=== PATIENT | female | born 1975 | race Caucasian/White ===

== ENCOUNTER → 2016-04-29 | Outpatient (CLI) | payer BC ==
[~2016-04-29] MED LIST: ALLDSR60 PO; BCPILLS PO; LRT5 PO; PRAM0.129 PO; SIMV20TA2 PO
[2016-04-29 12:33] LABS: ALT/SGPT 20 U/L (12-78); AST/SGOT 14 U/L (15-37); BLOOD UREA NITROGEN 11 mg/dl (7-18); CALCIUM 8.7 mg/dl (8.5-10.1); CARBON DIOXIDE 25 mmol/L (21-32); CHLORIDE 107 mmol/L (98-107); CREATININE 0.73 mg/dl (0.60-1.20); GLUCOSE 81 mg/dl (70-99); POTASSIUM 4.1 mmol/L (3.5-5.1); SODIUM 141 mmol/L (136-145)
[2016-04-29 12:44] LABS: ALB/GLOB RATIO 1.1 (0.9-2); ALKALINE PHOSPHATASE 80 U/L (45-117); CHOLESTEROL 186 mg/dl (0-200); CHOLESTEROL/HDL RATIO 3.5; HDL CHOLESTEROL 53 mg/dl; LDL CHOLESTEROL CALCULATED 105 mg/dl; TRIGLYCERIDES 140 mg/dl (0-150); VERY LOW DENSITY LIPOPROT CALC 28 mg/dl
== END | disposition home or self-care (01) ==
LOC: C.LABPVFM 07:29
PROVIDERS: ATTEND Family Medicine
DX: E78.4 Other hyperlipidemia (principal); G25.81 Restless legs syndrome; E03.9 Hypothyroidism, unspecified

== ENCOUNTER → 2016-06-22 | Outpatient (CLI) | payer BC ==
[2016-06-22 13:13] LABS: HEMATOCRIT 37.2 % (37-47)
== END | disposition home or self-care (01) ==
LOC: C.LAB1850 11:58
PROVIDERS: ATTEND Obstetrics & Gynecology
DX: N92.0 Excessive and frequent menstruation with regular cycle (principal)

== ENCOUNTER → 2016-09-02 | Outpatient (CLI) | payer BC ==
--- NOTE | 2016-09-03 14:24 | MAMMOGRAPHY REPORT ---
BILATERAL DIGITAL SCREENING MAMMOGRAM TOMOSYNTHESIS WITH CAD: 09/02/2016 CLINICAL HISTORY: Routine screening. Patient has no complaints. TECHNIQUE: Breast tomosynthesis in addition to standard 2D mammography was performed. Current study was also evaluated with a Computer Aided Detection (CAD) system. COMPARISON: Comparison is made to exam dated: 08/29/2015 mammogram - [facility] [place]. BREAST COMPOSITION: The tissue of both breasts is heterogeneously dense, which may obscure small mas ses. FINDINGS: The parenchymal pattern is unchanged. No developing mass, architectural distortion or clus ter of suspicious microcalcifications is seen in either breast. IMPRESSION: ACR BI-RADS CATEGORY 2: BENIGN There is no mammographic evidence of malignancy. A 1 year screening mammogram is recommended. The pa tient will receive written notification of the results. Approximately 10% of breast cancers are not detected with mammography. A negative mammographic report should not delay biopsy if a clinically suggestive mass is present. Cande Griggs M.D. ay/:09/02/2016 16:14:42 Refurbish Technician: Kathya ANN(Jany)(Liane)(BD), [facility] [place] letter sent: Normal 1/2 BI-RADS Code: ACR BI-RADS Category 2: Benign
== END | disposition home or self-care (01) ==
LOC: C.MAMM 08:04
PROVIDERS: ATTEND Obstetrics & Gynecology
DX: Z12.31 Encounter for screening mammogram for malignant neoplasm of breast (principal)

== ENCOUNTER → 2016-11-02 | Outpatient (CLI) | payer BC ==
[2016-11-02 13:29] LABS: ALT/SGPT 18 U/L (12-78); AST/SGOT 12 U/L (15-37); BLOOD UREA NITROGEN 10 mg/dl (7-18); BUN/CREATININE RATIO 11.9 (10-20); CALCIUM 8.7 mg/dl (8.5-10.1); CARBON DIOXIDE 25 mmol/L (21-32); CHLORIDE 109 mmol/L (98-107); GLUCOSE 78 mg/dl (70-99); POTASSIUM 4.4 mmol/L (3.5-5.1); SODIUM 139 mmol/L (136-145)
[2016-11-02 13:40] LABS: ALKALINE PHOSPHATASE 67 U/L (45-117); CHOLESTEROL 175 mg/dl (0-200); CHOLESTEROL/HDL RATIO 3.9; HDL CHOLESTEROL 45 mg/dl; LDL CHOLESTEROL CALCULATED 89 mg/dl; TRIGLYCERIDES 203 mg/dl (0-150); VERY LOW DENSITY LIPOPROT CALC 41 mg/dl
== END | disposition home or self-care (01) ==
LOC: C.LABPVFM 07:26
PROVIDERS: ATTEND Family Medicine
DX: E78.4 Other hyperlipidemia (principal); G25.81 Restless legs syndrome; E03.9 Hypothyroidism, unspecified; R03.0 Elevated blood-pressure reading, without diagnosis of hypertension

== ENCOUNTER → 2016-11-25 | Outpatient (CLI) | payer BC ==
[2016-11-25 12:34] LABS: HEMATOCRIT 38.3 % (37-47)
== END | disposition home or self-care (01) ==
LOC: C.LAB1850 11:32
PROVIDERS: ATTEND Obstetrics & Gynecology
DX: N92.0 Excessive and frequent menstruation with regular cycle (principal)

== ENCOUNTER → 2016-12-02 | Outpatient (CLI) | payer BC | END | disposition home or self-care (01) | LOC: C.PAPS 11:06 | PROVIDERS: ATTEND Obstetrics & Gynecology | DX: Z01.419 Encounter for gynecological examination (general) (routine) without abnormal findings (principal) ==

== ENCOUNTER → 2017-05-10 | Outpatient (CLI) | payer BC ==
[2017-05-10 13:21] LABS: ALBUMIN 3.6 gm/dl (3.4-5.0); ALT/SGPT 23 U/L (12-78); AST/SGOT 17 U/L (15-37); BLOOD UREA NITROGEN 9 mg/dl (7-18); CALCIUM 8.7 mg/dl (8.5-10.1); CARBON DIOXIDE 26 mmol/L (21-32); CHOLESTEROL 175 mg/dl (0-200); CREATININE 0.77 mg/dl (0.60-1.20); GLUCOSE 79 mg/dl (70-99); POTASSIUM 4.1 mmol/L (3.5-5.1); SODIUM 137 mmol/L (136-145)
[2017-05-10 13:32] LABS: ALKALINE PHOSPHATASE 75 U/L (45-117); LDL CHOLESTEROL CALCULATED 87 mg/dl; TOTAL PROTEIN 7.5 gm/dl (6.4-8.2)
== END | disposition home or self-care (01) ==
LOC: C.LABPVFM 07:15
PROVIDERS: ATTEND Family Medicine
DX: E78.4 Other hyperlipidemia (principal); G25.81 Restless legs syndrome; E03.9 Hypothyroidism, unspecified; H92.09 Otalgia, unspecified ear

== ENCOUNTER → 2017-05-24 | Outpatient (CLI) | payer BC ==
[~2017-05-24] MED LIST changes: +PRAM0.1212 PO; -PRAM0.129 PO
--- NOTE | 2017-05-24 08:44 | DIAGNOSTIC IMAGING REPORT ---
THYROID ULTRASONOGRAPHY CLINICAL HISTORY: HYPOTHYROIDISM COMPARISON STUDY: No previous studies for comparison. FINDINGS: The right lobe measures 32 x 14 x 13 mm pure the left lobe measures 44 x 15 x 13 mm. Both lobes demonstrate worsened echogenicity with tiny hypoechoic nodular foci. No suspicious thyroid masses are visualized. IMPRESSION: Heterogeneous thyroid gland. No suspicious thyroid nodules are evident Electronically signed by: Tree Mendoza M.D. 05/24/2017 8:43 AM Dictated Date/Time: 05/24/2017 8:41 AM
== END | disposition home or self-care (01) ==
LOC: C.ULTR 07:57
PROVIDERS: ATTEND Family Medicine
DX: R11.0 Nausea (principal); R10.13 Epigastric pain; R10.11 Right upper quadrant pain; E03.9 Hypothyroidism, unspecified

== ENCOUNTER → 2017-11-08 | Outpatient (CLI) | payer BC ==
[2017-11-08 14:02] LABS: ALBUMIN 3.8 gm/dl (3.4-5.0); ALKALINE PHOSPHATASE 56 U/L (45-117); ALT/SGPT 17 U/L (12-78); AST/SGOT 18 U/L (15-37); BLOOD UREA NITROGEN 11 mg/dl (7-18); CALCIUM 8.6 mg/dl (8.5-10.1); CARBON DIOXIDE 22 mmol/L (21-32); CHOLESTEROL 180 mg/dl (0-200); CREATININE 0.77 mg/dl (0.60-1.20); GLUCOSE 82 mg/dl (70-99); LDL CHOLESTEROL CALCULATED 90 mg/dl; POTASSIUM 4.1 mmol/L (3.5-5.1); SODIUM 139 mmol/L (136-145); TOTAL PROTEIN 7.1 gm/dl (6.4-8.2)
== END | disposition home or self-care (01) ==
LOC: C.LABPVFM 07:18
PROVIDERS: ATTEND Family Medicine
DX: E78.4 Other hyperlipidemia (principal); G25.81 Restless legs syndrome; E03.9 Hypothyroidism, unspecified; R03.0 Elevated blood-pressure reading, without diagnosis of hypertension

== ENCOUNTER 2019-09-14 07:03 | Observation (INO) ==
--- NOTE | 2019-09-06 14:43 | PAT Medication Instructions ---
Medication Instructions Date of Service September 06, 2019 Home Medications Medication Instructions Recorded levothyroxine 50 mcg tablet 50 mcg PO QAM #30 tab 04/26/19 lisinopril 5 mg tablet 5 mg PO QPM #30 tab 08/28/19 ropinirole 4 mg tablet 4 mg PO HS #30 tab 08/28/19 multivitamin 1 tab PO QAM fluticasone propionate 50 mcg/actuation nasal spray 1 - 2 sprays INTRANASAL QAM levothyroxine 50 mcg tablet 50 mcg PO QAM atorvastatin 40 mg PO QPM fexofenadine-pseudoephedrine [Sophie-D 24 Hour] 1 tab PO QAM lisinopril 5 mg tablet 5 mg PO QPM ropinirole 4 mg tablet 4 mg PO HS albuterol sulfate 1 inh INHALATION QID PRN deuvodt-nvtgeaweganxz-imrcewoe [Excedrin Migraine] 1 tab PO Q6H PRN ASK your surgeon for instructions mmuxpxy-rfwudylekhgyq-ypmjwvlo [Excedrin Migraine] 1 tab PO Q6H PRN STOP taking 24 hours before surgery ropinirole 4 mg tablet 4 mg PO HS DO NOT take the morning of surgery multivitamin 1 tab PO QAM fexofenadine-pseudoephedrine [Sophie-D 24 Hour] 1 tab PO QAM Take morning of surgery With a small sip of water, OTHERWISE NOTHING TO EAT OR DRINK AFTER MIDNIGHT: fluticasone propionate 50 mcg/actuation nasal spray 1 - 2 sprays INTRANASAL QAM levothyroxine 50 mcg tablet 50 mcg PO QAM albuterol sulfate 1 inh INHALATION QID PRN (if needed, and bring with you to the hospital) Take evening before surgery atorvastatin 40 mg PO QPM lisinopril 5 mg tablet 5 mg PO QPM albuterol sulfate 1 inh INHALATION QID PRN (if needed) Other Notes If you have any questions please call us at [phone] or [phone] or [phone] or [phone]
--- NOTE | 2019-09-06 14:48 | Anesthesiology Consultation ---
Date of Service September 06, 2019 Assessment & Plan (1) Encounter for pre-operative examination: COVID Status: As of 09/05 nurse assessment, patient denies travel to endemic area, known exposure/sick contacts, symptoms, or testing for coronavirus. test AM DOS Chart Review Chart Review: Acceptable Risk for Surgery and Patient seen in Pre Admission Testing Teaching & Discussion Instructed NPO after midnight before surgery, except medications with 15 cc of water. Medication instructions provided according to the PAT guidelines. History Surgery Operation Date: 09/14/19 07:30 Proposed Procedures p Robotic Total Laparoscopic Hysterectomy - Srinath Leon MD, FACOG Height/Weight Height: 5 ft 5 in Weight: 75.7 kg Allergies Allergy/AdvReac Type Severity Reaction Status Date / Time Dust Mite Allergy Unknown Uncoded 08/30/19 08:15 Medications Home Medications Medication Instructions Recorded Confirmed Last Taken multivitamin 1 tab PO QAM 11/08/18 09/06/19 Unknown fluticasone propionate 50 1 - 2 sprays INTRANASAL QAM gm 11/16/18 09/06/19 Unknown mcg/actuation nasal spray,suspension levothyroxine 50 mcg tablet 50 mcg PO QAM #30 tab 04/26/19 09/06/19 Unknown atorvastatin 40 mg PO QPM 07/02/19 09/06/19 Unknown fexofenadine-pseudoephedrine 1 tab PO QAM 07/02/19 09/06/19 Unknown [Sophie-D 24 Hour] lisinopril 5 mg tablet 5 mg PO QPM #30 tab 08/28/19 09/06/19 Unknown ropinirole 4 mg tablet 4 mg PO HS #30 tab 08/28/19 09/06/19 Unknown albuterol sulfate 1 inh INHALATION QID PRN 08/30/19 09/06/19 Unknown dybkhlw-dnljffibvaayf-psqyhbgi 1 tab PO Q6H PRN 08/30/19 09/06/19 Unknown [Excedrin Migraine] Past Medical History Medical History (Updated 09/07/19 @ 12:59 by Navdeep Richter) Asthma EXERCISE INDUCED-HASN'T USED INHALER FOR YRS Factor 5 Leiden mutation, heterozygous DX'D YRS AGO THRU DR CAMARGO-DUE TO FAMILY HX-HAS NOT EXPERIENCED ANY ISSUES Hyperlipidemia Hypertension Kidney stones PASSED ON OWN; NO SURGERY Migraine Restless leg syndrome Skin abnormalities Exercise / Class Metabolic Activity II 4-5 Yardwork/Stairs/Walk up hill Past Family History Family History Mother Colorectal cancer Denies family history of Ovarian cancer Prostate cancer Myocardial infarction Breast cancer Past Surgical History Surgical History History of eye surgery REMOVAL OF PTERYGIUM OF EYE Status post open reduction with internal fixation (ORIF) of fracture of ankle 1998; REMOVAL OF SCREWS AND PLATE 2 TO 3 YEARS LATER. [place] teeth extracted Past Anesthesia History No Hx of Anesthesia Complications and No Family Hx of Anesthesia Complications History of PONV No Hx of PONV and Hx of Motion Sickness Social History Smoking Status: Never smoker Do You Dip or Chew Tobacco: No Hx Alcohol Use: No Hx Substance Use: No substance use type: does not use Review of Systems Pt denies any recent chest pain, shortness of breath, palpitations, cough, fever or URI. Physical Exam Vital Signs BP: 134/87 P: 76bpm SPO2: 95% RA T: 98.7 F R: 16 ENMT Mouth: + dental restorations (crowns on few molars); no chipped teeth and no loose teeth Thyromental Distance: < 3.5 Finger Breadths (3) Mallampati Class: III Neck normal visual inspection; neck extension not limited Respiratory normal respiratory effort Auscultation: lungs clear to auscultation bilaterally Cardiovascular Rate/Rhythm: regular rate and regular rhythm Heart Sounds: no murmur Extremities: no edema Testing Laboratory Results 09/06/19 15:01 09/06/19 15:01 Blood Type A Positive 09/06/19 15:01 Antibody Screen NEGATIVE 09/06/19 15:01
[2019-09-06 15:31] LABS: Basophils # (auto) 0.06 K/uL (0-0.2); Basophils % (auto) 0.9 %; Eosinophils # (auto) 0.15 K/uL (0-0.5); Eosinophils % (auto) 2.4 %; Hemoglobin 12.6 g/dL (12.0-16.0); Lymphocytes # (auto) 2.36 K/uL (1.2-3.4); Lymphocytes % (auto) 37.2 %; Mean Corpuscular Hemoglobin 32.3 pg (25-34); Mean Corpuscular Hgb Conc 34.1 g/dL (32-36); Mean Corpuscular Volume 94.9 fL (80-100); Mean Platelet Volume 10.3 fL (7.4-10.4); Monocytes # (auto) 0.57 K/uL (0.11-0.59); Neutrophils % (auto) 50.5 %; Platelet Count 281 K/uL (130-400); RDW Coefficient of Variation 12.8 % (11.5-14.5); RDW Standard Deviation 43.8 fL (36.4-46.3); White Blood Count 6.34 K/uL (4.8-10.8)
[2019-09-06 15:41] LABS: BUN Creatinine Ratio 19.8 (10-20); Calcium 9.2 mg/dl (8.5-10.1); Creatinine Clr Calc Pharmacy 93.7 ml/min; Est GFR (African American) 107.2; Est GFR (Non-African American) 92.5; Potassium 3.7 mmol/L (3.5-5.1)
[~2019-09-14 07:03] MED LIST changes: -ALLDSR60 PO; -BCPILLS PO; +CEFAZOLIN 2000MG 2,000 MG/15 ML SYR IV SCH; +LACTATED RINGER'S 1,000 ML IV SCH; +LR 15ML/HR IV SCH; -LRT5 PO; -PRAM0.1212 PO; -SIMV20TA2 PO
--- NOTE | 2019-09-14 08:15 | History & Physical Bridge Note ---
Date of Service September 14, 2019 History & Physical Bridge Note I have examined the patient, reviewed the History & Physical and in the interval since the performance of the History & Physical I have noted the following changes of clinical significance: no changes noted
[2019-09-14] MEDS ORDERED: fentaNYL citrate 100 MCG/2 ML VIAL ONE ×2 (08:21→12:45)
[2019-09-14] MEDS ORDERED: MIDAZOLAM HCL 1 MG/ML 2ML VIAL ONE (08:22)
[2019-09-14] MEDS ORDERED: BUPIVACAINE 0.5 % 5 MG/1 ML MPF 30ML VIAL ONE (09:04)
[2019-09-14] MEDS ORDERED: ePHEDrine sulfate 50 MG/ML AMP IV PRN (09:06)
[2019-09-14] MEDS ORDERED: ATROPINE SULFATE 0.1 MG/ML 10ML SYR IV PRN (09:06)
[2019-09-14] MEDS ORDERED: ONDANSETRON INJ 2 MG/ML 2 ML VIAL IV PRN ×2 (09:06→13:12)
[2019-09-14] MEDS ORDERED: PROMETHAZINE HCL 12.5 MG in SODIUM CHLORIDE 0.9% 50 ML IV PRN ×2 (09:06→13:12)
[2019-09-14] MEDS ORDERED: HYDROmorphone INJ 2 MG/ML SYR/VIAL IV PRN (09:06)
[2019-09-14] MEDS ORDERED: ROCURONIUM BROMIDE 10 MG/ML 5 ML VIAL IV ONE (09:58)
[2019-09-14] MEDS ORDERED: PROPOFOL IV EMULSION 10 MG/ML 20 ML VIAL IV ONE (09:58)
[2019-09-14] MEDS ORDERED: METHYLENE BLUE 0.5% 10 ML VIAL ONE (09:58)
[2019-09-14] MEDS ORDERED: TISSEEL FIBRIN SEALANT 10ML TOP ONE (10:05)
[2019-09-14] MEDS ORDERED: METHYLENE BLUE 0.5% 10 ML VIAL IV SCH (10:15)
--- NOTE | 2019-09-14 11:49 | Operative Report ---
PG Post Operative Report Pre & Post Diagnosis Operation Date: 09/14/19 08:45 Pre-Op Diagnosis: Uterine Fibroids Post-Op Diagnosis: Uterine Fibroids I identified the patient and participated in the time-out.: Yes Procedure Operation Date: 09/14/19 08:45 Actual Procedures p Robotic Total Laparoscopic Hysterectomy, Bilateral Salpingectomy, surgical excision of fibroid uterus with weight greater than 250 grams - Srinath Leon MD, FACOG Surgeon Srinath Leon MD, FACOG Truck Mechanic none Estimated Blood Loss 10 Findings Consistent with Post-Op Diagnosis Specimens Uterus cervix and fallopian tubes Description of Procedure Patient was given a general anesthetic, prepped and draped in dorsal lithotomy position in yellow fin valentina stirrups. Care was taken to position the legs and arms properly with no excess pressure on any area. Pre-operative antibiotics were given and SCDs applied earlier. Catherine catheter was inserted into her bladder, V-Care manipluator was placed in the uterus and sutured in place. Gloves were changed and then a supra-umbilical incision was made with scalpel, using Nelda technique, we dissected through the subcutaneous fat, fascia, split the rectus muscles and then entered the peritoneal cavity.. Blunt tip Nelda Trochar then inserted and balloon inflated to stabilize the port. CO2 gas was then used to insufflate the peritoneal cavity. Findings. Significantly enlarged uterus with large exophytic fibroid and some small benign appearing subserosal fibroids as well there were no significant adhesions Deep tendelenberg position was obtained. 3 robotic ports were then placed, one on the left, one on the right side under direct visualization. 11mm bladeless accessory port placed in left upper quadrant under direct visualization. Robot docked. Arm #1 Monopolar ary, arm #2 Bipolar [place] grasper. Arm #3 was pro-grasp Fallopian tubes were identified and removed with the monoplar ary and removed thru the accessory port. Ureter was identified on each side and followed a normal course. Distal to the left ovary, the blood supply was coagulated with the bipolar [place] and then cut with Ary. We were well away from the ureter. Round ligament was coagulated and then cut. Uterine vessels were then skeletonized, bladder flap was sharply dissected away with ary. Uterine vessels were then coagulated close to the cervix staying away from the left ureter. Vessels then cut. The exact same process was repeated on the right side taking note of the location of the right ureter at all times. Should be noted the posterior aspect of the fibroid and the side pushed over to the right however there was no difficulty isolating the uterine vessels and making the bladder flap on the side Colpotomy was then performed with the monopolar ary, once completed, the specimen was placed into the left upper quadrant as it would not fit through the vagina A sponge in a glove was then placed in the vagina to maintain pneumoperitoneum. Instrument exchange then occurred. Arm #1 became the ZARIA needle electric train driver, Arm # 2 became the [employer] Grasper. 12 inch 2-0 V-Lock 90 day suture was placed through the accessory port. Cuff was closed from left to right, then back taking at least 1cm full thickness bites of vaginal mucosa. Suture was cut so there was no tail, needle removed through the accessory port. Sponge removed from the vagina and seal air tight. Generous irrigation and suction, hemostasis excellent, Tisseal applied to pedicles. Cystoscopy performed and no injury to the bladder, no sutures noted, good strong jets of blue colored dye were noted from both right and left ureter openings. Cystoscope removed and a new catherine catheter placed. Robot undocked, we then remove the umbilical port which was an Logan port and placed a 15 mm blade was port under direct visualization then placing a very large surgical bag through this we placed the specimen grasping the specimen with a 5 mm Primitivo specimen was then placed into the bag Primitivo removed bag was then brought to the umbilical surface by removing the port and then an Gerhard small retractor was placed in the bag we then performed the excite technique taking sure to remove the fibroid in pieces and strips in the uterus taking care not to damage the bag of the surrounding structures as we maintain pneumoperitoneum this part of the process took approximately 45 minutes once the specimen was fully removed I was able to remove the bag we inspected with the laparoscope the 5 mm hemostasis was excellent the pelvis was hemostatic there was no sign of damage to surrounding organs instruments, ports removed. gas allowed to escape. Incisions injected with Marcaine, fascia closed in the umbilical and a deep stitch into the accessory port with 0-Vicryl. 4-0 subcuticular skin closures on all incisions, dermabond apllied. Sponge and instrument counts correct. I attest to the content of the Intraoperative Record and any orders documented therein. Any exceptions are noted below.
[2019-09-14] MEDS: fentaNYL citrate 100 MCG/2 ML VIAL IV PRN ×2 (12:22→12:27)
[2019-09-14] MEDS ORDERED: ONDANSETRON INJ 2 MG/ML 2 ML VIAL ONE (12:46)
[2019-09-14] MEDS ORDERED: DEXAMETHASONE SOD INJ 4 MG/ML VIAL ONE (12:46)
--- NOTE | 2019-09-14 12:49 | Anesthesiology Progress Note ---
Date of Service September 14, 2019 Anesthesia Post Procedure Vital Signs Vital Signs: Temp Pulse Pulse Resp BP Pulse Ox 09/14/19 12:45 78 14 156/100 H 97 09/14/19 12:35 36.8 C 76 15 150/84 H 98 09/14/19 12:25 73 20 157/94 H 96 09/14/19 12:15 70 17 145/95 H 97 09/14/19 12:05 73 20 166/98 H 97 09/14/19 11:59 36.2 C L 69 14 153/100 H 96 09/14/19 07:40 37.1 C 84 20 147/107 H 97 Pain Intensity Abdomen: Pain Intensity: 3 Transfer of Care Handoff Completed per policy Notes Mental Status: alert / awake / arousable and participated in evaluation Patient Amnestic to Procedure: Yes Nausea / Vomiting: adequately controlled Pain: adequately controlled Airway Patency, RR, SpO2: stable & adequate BP & HR: stable & adequate Hydration State: stable & adequate Anesthetic Complications: no major complications apparent and Pt Satisfied with anesthetic care
[2019-09-14] MEDS ORDERED: ZOLPIDEM TARTRATE 5 MG TAB PO PRN (13:12)
[2019-09-14] MEDS ORDERED: OXYCODONE/ACETAMINOPHEN 5mg/325mg TAB PO PRN ×2 (13:12)
[2019-09-14] MEDS ORDERED: KETOROLAC 30 MG/ML VIAL IV PRN (13:12)
[2019-09-14] MEDS ORDERED: IBUPROFEN 600 MG TAB PO PRN (13:12)
[2019-09-14] MEDS ORDERED: SIMETHICONE 80 MG CHEW PO PRN (13:12)
[2019-09-14] MEDS ORDERED: bisacodyL 10 MG SUPP PR PRN (13:12)
[2019-09-14] MEDS ORDERED: MAGNESIUM HYDROXIDE SUSP 30 ML UDC PO PRN (13:12)
[2019-09-14] MEDS ORDERED: LACTATED RINGER'S 1,000 ML IV SCH (13:12)
[2019-09-14] MEDS ORDERED: MEPERIDINE HCL 50 MG/ML CARP IV PRN (13:12)
[2019-09-14] MEDS ORDERED: ACETAMINOPHEN 325 MG TAB PO PRN (13:12)
[2019-09-14] MEDS ORDERED: ROPINIROLE HCL 1 MG TABLET PO SCH (21:00)
[2019-09-14] MEDS ORDERED: ATORVASTATIN 40 MG TAB PO SCH (21:00)
[2019-09-14] MEDS ORDERED: DOCUSATE SODIUM 100 MG CAP PO SCH (21:00)
[2019-09-14] MEDS ORDERED: lisinopriL 5 MG TAB PO SCH (21:00)
[2019-09-15] MEDS ORDERED: LEVOTHYROXINE SODIUM 50 MCG TABLET PO SCH (06:30)
[2019-09-15] MEDS ORDERED: MULTIVITAMIN TAB PO SCH (09:00)
[2019-09-15] MEDS ORDERED: FEXOFENADINE 60MG/PSEUDOEPHEDRINE 120MG TAB PO SCH (09:00)
--- NOTE | 2019-09-16 21:53 | Discharge Summary ---
Date of Service September 16, 2019 Discharge Data Procedures Performed Operation Date: 09/14/19 08:45 Actual Procedures p Robotic Total Laparoscopic Hysterectomy, Bilateral Salpingectomy, surgical excision of fibroid uterus with weight greater than 250 grams - Srinath Leon MD, [facility] Course (1) H/O uterine leiomyoma: Patient had a total laparoscopic hysterectomy and bilateral removal of fallopian tubes and cystoscopy on September 13 this procedure was uncomplicated and was for a larger sized uterus the patient went home the same day later in the day she was ambulating having minimal bleeding her pain was well controlled she had no extremity pain patient was able to void and was tolerating oral pain medication she was discharged home with discharge instructions and told to follow-up in the office and call sooner with any problems Coding Level of Care Code None Diagnoses H/O uterine leiomyoma Z86.018
== END 2019-09-14 18:53 | disposition home or self-care (01) ==
LOC: 4N 07:03 → ASU 07:03